=== PATIENT | female | born 1970 | race Caucasian/White ===

== ENCOUNTER → 2019-05-30 | Outpatient (CLI) | payer BC, OTHER ==
[~2019-05-30] MED LIST: AC325T PO; ACHD5005 PO; AMIT150T3 PO; ATOR10TA66 PO; CARI350T27 PO; GBPN100C PO; HYDR-2890 PO; METH4TAB PO; NAPR-243 PO; NORT25CA PO; PNT40TEC PO
--- NOTE | 2019-05-30 14:49 | Diagnostic Imaging Report ---
INDICATION: Routine screening. COMPARISON: No prior mammograms are available for comparison. This is a baseline study. TECHNIQUE: 2D and 3D bilateral screening mammography was performed with CAD. FINDINGS: Both breasts show marked parenchymal heterogeneity and increased density, limiting the sensitivity of mammography. Occasional benign calcifications are noted. No malignant appearing microcalcifications are seen. No mass is identified. The axillae are unremarkable. IMPRESSION: No mammographic features suspicious for malignancy are identified. ACR BI-RADS Category 2: Benign findings. Result letter will be mailed to the patient. Note: At least 10% of breast cancer is not imaged by mammography. Dictated by: Dictated on workstation # [id number]
== END ==
LOC: RAD 08:23
PROVIDERS: ATTEND Nurse Practitioner
DX: Z12.31 Encounter for screening mammogram for malignant neoplasm of breast (principal)
CPT/HCPCS: 77067

== ENCOUNTER → 2020-01-25 | Outpatient (CLI) | payer OTHER | LOC: RAD 09:47 | PROVIDERS: ATTEND Nurse Practitioner | DX: R07.9 Chest pain, unspecified (principal) ==

== ENCOUNTER → 2022-01-29 | Outpatient (CLI) | payer OTHER ==
--- NOTE | 2022-01-29 12:56 | Diagnostic Imaging Report ---
PROCEDURE: US carotid duplex, bilateral. INDICATION: 51-year-old female, dizziness and tinnitus, vertigo. TECHNIQUE: Multiple real-time grayscale images were obtained over the carotid arteries in various projections bilaterally. Additional spectral analysis and color Doppler and Duplex images were also obtained. CORRELATION: None FINDINGS: Right carotid circulation: The right common carotid artery is normal in course and caliber. The right internal carotid artery is patent. No hemodynamically significant stenosis is present at this time. Right external carotid artery is patent. Left carotid circulation: The left common carotid artery is normal in course and caliber. The left internal carotid artery is patent. No hemodynamically significant stenosis is present at this time. Left external carotid artery is patent. Antegrade flow in the bilateral vertebral arteries. DOPPLER (peak systolic velocity M/S Right Left CCA .87 .72 ICA Proximal .72 .72 ICA Mid 1.03 .82 ICA Distal .55 .67 RATIO 1.18 1.13 ECA .58 .44 VERT .47 .43 IMPRESSION: 1. No sonographic evidence to suggest a hemodynamically significant stenosis of the internal carotid arteries at this time. Parameters based on the consensus panel Lyle-Scale and Doppler ultrasound criteria published August 2003, Radiology, Volume 229. Dictated by: Dictated on workstation # [id number]
== END ==
LOC: RAD 12:00
PROVIDERS: ATTEND Family Medicine
DX: Z76.0 Encounter for issue of repeat prescription (principal); H81.399 Other peripheral vertigo, unspecified ear; G43.911 Migraine, unspecified, intractable, with status migrainosus; K21.9 Gastro-esophageal reflux disease without esophagitis; G89.29 Other chronic pain
CPT/HCPCS: 93880